=== PATIENT | male | born 1975 | race Caucasian/White ===

== ENCOUNTER → 2019-09-15 | Outpatient (CLI) | payer OTHER ==
[~2019-09-15] MED LIST: AMOXICILLIN500 MG PO; BENTYL20 MG PO; DARVOCET N 1001 TAB PO; DIFLUCAN100 MG PO; FLAGYL500 MG PO; KEFLEX500 MG PO; LOTRISONE 0.05%1 CRE TP; PEPCID20 MG PO; VICODIN 5/500 505 MG PO
== END | disposition home or self-care (01) ==
LOC: US 07-26 09:30
DX: K76.0 Fatty (change of) liver, not elsewhere classified (principal)

== ENCOUNTER → 2020-02-23 | Outpatient (CLI) | payer OTHER | END | disposition home or self-care (01) | LOC: MRI 02-09 09:00 | DX: M48.02 Spinal stenosis, cervical region (principal) ==

== ENCOUNTER → 2020-05-28 | Outpatient (CLI) | payer OTHER ==
[2020-05-28 09:44] LABS: URINE AMPHETAMINES < 1000 (1000ng/ml); URINE BARBITURATES < 200 (200ng/ml); URINE BENZODIAZEPINES < 200 (200ng/ml); URINE CANNABINOIDS (THC) < 50 (50ng/ml); URINE COCAINE < 300 (300ng/ml); URINE METHADONE < 300 (300ng/ml); URINE OPIATES < 300 (300ng/ml)
[2020-05-28 09:45] LABS: URINE PHENCYCLIDINE < 25 (25ng/ml)
== END | disposition home or self-care (01) ==
LOC: LAB 09:08
PROVIDERS: ATTEND Nurse Practitioner Primary Care
DX: Z79.899 Other long term (current) drug therapy (principal)

== ENCOUNTER 2020-06-15 01:58 | Inpatient (IN) | payer OTHER ==
[2020-06-15] VITALS (8 sets, daily range): BP systolic 128–163; BP diastolic 78–95
[~2020-06-15] VITALS: Ht 183 cm; Wt 125.0 kg
[2020-06-15 02:20] LABS: HEMATOCRIT 52.1 % (42.0-52.0); MEAN CELL VOLUME 90.1 fl (80.0-94.0); MEAN CORPUSCULAR HGB 29.2 pg (27.0-31.0); MEAN CORPUSCULAR HGB CONC 32.4 g/dl (33.0-37.0); MEAN PLATELET VOLUME 10.2 fl (9.6-12.3); PLATELET COUNT AUTOMATED 610 10*3/uL (130-400); RED BLOOD COUNT 5.78 10*6/uL (4.50-5.90); RED CELL DISTRI WIDTH 14.5 % (0-14.5); WHITE BLOOD COUNT 23.7 10*3/uL (4.8-10.8)
[2020-06-15 02:36] LABS: ALBUMIN 4.4 gm/dl (3.1-4.5); ALKALINE PHOSPHATASE 109 U/L (45-117); BUN 22 mg/dl (7-24); CHLORIDE 110 mmol/L (98-107); CREATININE 1.44 mg/dL (0.70-1.30); POTASSIUM 4.2 mmol/L (3.5-5.1); SGOT/AST 117 IU/L (3-35); SGPT/ALT 171 U/L (12-78); SODIUM 142 mmol/L (136-145); TOTAL PROTEIN 8.8 gm/dL (6.4-8.2)
[2020-06-15 02:44] LABS: BURR CELLS FEW; PLATELET SUFFICIENCY HIGH (NORMAL); TOTAL CELLS COUNTED 100 #CELLS
[2020-06-15 02:49] LABS: CPK 3474 U/L (39-308)
--- NOTE | 2020-06-15 04:07 | NUR ---
PT FAMILY AT BEDSIDE. PT DENIES ANY WOUNDS AT THIS TIME. SEVERAL SMALL SCRATCHES NOTED TO RIGHT UPPER ARM.
--- NOTE | 2020-06-15 05:02 | NUR ---
SANG COY JR, .PLEASE CALL SON IF PT IS DISCHARGED.
--- NOTE | 2020-06-15 06:28 | NUR ---
PT STILL UNABLE TO OBTAIN URINE SAMPLE. PT AGREES TO HIT CALL LIGHT WHEN URINE SAMPLE IS AVAILABLE. DENIES ALL OTHER NEEDS AT THIS TIME. BED RAILS X2. SAFETY PRECAUTIONS INTACT. WILL CONTINUE TO MONITOR.
--- NOTE | 2020-06-15 07:15 | NUR ---
BEDSIDE REPORT RECIEVED FROM PREVIOUS RN
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
--- NOTE | 2020-06-15 08:15 | NUR ---
PATIENT STATES HE IS STILL TRYING TO URINATE. HE HAS THE URINAL BETWEEN HIS LEGS. HE SAID HE WILL PUT THE CALL LIGHT ON WHEN HE IS FINISHED AND READY TO BE REPOSITIONED
--- NOTE | 2020-06-15 09:51 | NUR ---
LAB AT BEDSIDE
--- NOTE | 2020-06-15 09:51 | NUR ---
BREAKFAST TRAY PROVIDED
[2020-06-15 09:59] LABS: HEMATOCRIT 47.1 % (42.0-52.0); MEAN CELL VOLUME 91.5 fl (80.0-94.0); MEAN CORPUSCULAR HGB 29.9 pg (27.0-31.0); MEAN CORPUSCULAR HGB CONC 32.7 g/dl (33.0-37.0); MEAN PLATELET VOLUME 10.2 fl (9.6-12.3); PLATELET COUNT AUTOMATED 556 10*3/uL (130-400); RED BLOOD COUNT 5.15 10*6/uL (4.50-5.90); RED CELL DISTRI WIDTH 14.6 % (0-14.5)
[2020-06-15 10:16] LABS: ATYPICAL LYMPHS 2 % (0-0); TOTAL CELLS COUNTED 100 #CELLS
[2020-06-15 10:17] LABS: BURR CELLS FEW; PLATELET SUFFICIENCY HIGH (NORMAL); POLYCHROMASIA SLIGHT
[2020-06-15 10:26] LABS: ALBUMIN 3.7 gm/dl (3.1-4.5); BUN 21 mg/dl (7-24); CHLORIDE 112 mmol/L (98-107); CHOLESTEROL 153 mg/dL (<200); CREATININE 0.91 mg/dL (0.70-1.30); HDL CHOLESTEROL 28 mg/dl (40-60); LDL CHOLESTEROL 94 mg/dL (9-159); POTASSIUM 3.9 mmol/L (3.5-5.1); SGOT/AST 192 IU/L (3-35); SGPT/ALT 153 U/L (12-78); SODIUM 144 mmol/L (136-145); TOTAL PROTEIN 7.6 gm/dL (6.4-8.2); TRIGLYCERIDES 154 mg/dl (<150); VLDL CHOLESTEROL 31 mg/dL (6-40)
--- NOTE | 2020-06-15 10:26 | NUR ---
I SPOKE WITH JOCE CASON, PATIENT IS UNSURE OF HIS MEDICATION LIST, HE DOES USE BLOORS AT TIMES AND WE CALLED AND HAD THEM FAX US A LIST. WE ARE WAITING ON THAT TO MAKE DECISIONS. HE WAS JUST REPOSITIONED IN BED WELL, SKIN INTACT, HE IS AWARE A URINE SAMPLE IS STILL NEEDED. I ALSO FED HIM HIS BREAKFAST AND HE ATE 95% OF IT, WELL ONE JUICE AND HIS COFFEE. HE HAS NO NEEDS. I PROVIDED HIS CALL LIGHT FOR HIM.
[2020-06-15 10:36] LABS: ALKALINE PHOSPHATASE 94 U/L (45-117)
[2020-06-15 10:41] LABS: CPK 5537 U/L (39-308)
--- NOTE | 2020-06-15 10:59 | NUR ---
REFUSING A STRAIGHT CATH AT THIS TIME. HE IS STILL TRYING TO URINATE IN URINAL. YOAV LAGUNAS
[2020-06-15 11:41] LABS: BILIRUBIN 1+ (Negative); BLOOD 1+ (Negative); CLARITY Cloudy (Clear); COLOR Dark Yellow (Yellow); GLUCOSE Negative (Negative); KETONE Trace (Negative); LEUKO ESTERASE Trace (Negative); NITRITE Negative (Negative); PH 5.5 (4.5-8.0); SPECIFIC GRAVITY 1.025 (1.001-1.030)
[2020-06-15 11:49] LABS: BACTERIA 2+
[2020-06-15 11:50] LABS: MUCOUS 3+
[2020-06-15 11:51] LABS: URINE AMPHETAMINES > 1000 (1000ng/ml); URINE BARBITURATES < 200 (200ng/ml); URINE BENZODIAZEPINES > 200 (200ng/ml); URINE CANNABINOIDS (THC) < 50 (50ng/ml); URINE COCAINE < 300 (300ng/ml); URINE METHADONE < 300 (300ng/ml); URINE OPIATES < 300 (300ng/ml)
[2020-06-15 11:54] LABS: URINE PHENCYCLIDINE < 25 (25ng/ml)
--- NOTE | 2020-06-15 13:08 | NUR ---
A 44, admitted to , under the services of SOCO Ernandez DO with a diagnosis of RHABDOMYOLYSIS. Chief complaint is SMOKED HIS MEDICAL MARIJUANA LAST NIGHT, FELL ASLEEP & LAID ON LEFT SIDE X 7 HRS. Patient arrived via bed from ER. Monitor applied. Initial assessment completed. Vital signs taken and recorded. SOCO ERNANDEZ DO notified of admission to the unit. Orders received. See assessment for past medical history, medications and allergies. Patient and/or family oriented to unit. [facility] visitation policy reviewed. Clothing/patient valuable form completed. KOBI SNOW
[2020-06-15] MEDS ORDERED: MULTIPLE VITAM1 EAC2 PO (13:30)
[2020-06-15] MEDS ORDERED: XARE20MG PO (13:31)
[2020-06-15] MEDS ORDERED: VITAMIN D350 MCG PO (13:31)
[2020-06-15] MEDS ORDERED: DILTIAZEM HCL120 M1 PO (13:31)
[2020-06-15] MEDS ORDERED: VITAMIN E1000 UNI1 PO (13:32)
[2020-06-15] MEDS ORDERED: GABAPENTIN800 MG PO (13:32)
[2020-06-15] MEDS ORDERED: SUNMARK OMEPRAZ20 M1 PO (13:33)
[2020-06-15] MEDS ORDERED: ALL DAY ALLERGY10 M2 PO (13:33)
[2020-06-15] MEDS ORDERED: ATORVASTATIN CA20 M1 PO (13:33)
[2020-06-15] MEDS ORDERED: FISH OIL CONC1000 M1 PO (13:34)
[2020-06-15] MEDS ORDERED: QUETIAPINE FUM100 M1 PO (13:34)
[2020-06-15] MEDS ORDERED: NATURE'S BLEND F1 MG PO (13:35)
[2020-06-15] MEDS ORDERED: 'XANAX1 MG PO (13:35)
[2020-06-15] MEDS ORDERED: TRAZODONE100 MG PO (13:35)
[2020-06-15] MEDS ORDERED: Nystatin Cream15 GM T (13:36)
[2020-06-15] MEDS ORDERED: REMERON15 M2 PO (13:36)
--- NOTE | 2020-06-15 13:50 | NUR ---
Attempted to hang iv fluids noted noted at iv site to left hand is occluded and visibly bent. Pt states he moved and laid on his hand.
--- NOTE | 2020-06-15 16:30 | NUR ---
Pt accidently pulled out iv. Currently assisted to bedpan for bm. Will restart.
--- NOTE | 2020-06-15 22:02 | NUR ---
PRN TYLENOL GIVEN FOR PT COMPLAINTS OF NECK PAIN RATING IT 6/10. CALL LIGHT WITHIN REACH, WILL MONITOR
--- NOTE | 2020-06-15 22:07 | NUR ---
PRN XANAX GIVEN FOR PT COMPLAINTS OF ANXIETY AND RESTLESSNESS. CALL LIGHT WITHIN REACH, WILL MONITOR
--- NOTE | 2020-06-15 23:00 | NUR ---
PRN MEDICATION SOMEWHAT EFFECTIVE PER PT
[2020-06-16] VITALS: BP 151/88
--- NOTE | 2020-06-16 01:04 | NUR ---
PATIENT SLEEPING, NO DISTRESS NOTED. SNORING RESPIRATIONS. NO DISTRESS NOTED. CALL LIGHT WITHIN REACH, WILL MONITOR
--- NOTE | 2020-06-16 03:41 | NUR ---
PATIENT CONTINUES TO SLEEP. SNORING RESPIRATIONS. NO DISTRESS NOTED. CALL LIGHT WITHIN REACH, WILL MONITOR
--- NOTE | 2020-06-16 06:38 | NUR ---
SPOKE WITH DR. MCGRATH ABOUT PATIENTS TRAZADONE AND REMERON AND THAT PATIENT STATED HE CANNOT TAKE THE MEDICATION TOGETHER OR HE HALLUCINATES. UNSURE IF PATIENT TAKES MEDICATIONS SEPARATE OR DOESN'T TAKE TRAZADONE AT ALL PATIENT WAS ADAMENT ABOUT TAKING THE REMERON. THIS NURSE INQUIRED ABOUT D/C THE TRAZADONE OR MAKING IT PRN. HE STATED TO PUT THE MEDICATION ON HOLD AND THAT HE WILL PASS IT ON TO THE DAY TEAM AND LET THEM DECIDE FROM THERE
--- NOTE | 2020-06-16 07:00 | NUR ---
ARRIVED ON SHIFT, REPORT RECEIVED FROM OFFGOING NURSE, ASSUMED CARE OF PATIENT.
[2020-06-16 07:02] LABS: ALBUMIN 3.1 gm/dl (3.1-4.5); ALKALINE PHOSPHATASE 86 U/L (45-117); BUN 16 mg/dl (7-24); CHLORIDE 114 mmol/L (98-107); CREATININE 0.54 mg/dL (0.70-1.30); POTASSIUM 3.7 mmol/L (3.5-5.1); SGOT/AST 171 IU/L (3-35); SGPT/ALT 131 U/L (12-78); SODIUM 145 mmol/L (136-145); TOTAL PROTEIN 6.7 gm/dL (6.4-8.2)
[2020-06-16 07:26] LABS: CPK 2894 U/L (39-308)
--- NOTE | 2020-06-16 07:30 | NUR ---
INTRODUCED SELF TO PATIENT, BED IN LOW POSITION WITH WHEEL LOCKS ENGAGED, SIDE RAILS UP X 2 FOR TURNING AND REPOSITIONING, CALL LIGHT WITHIN REACH, NO NEEDS VOICED AT THIS TIME. WHITE BOARD UPDATED.
[2020-06-16 07:48] LABS: HEMATOCRIT 46.9 % (42.0-52.0); MEAN CELL VOLUME 92.7 fl (80.0-94.0); MEAN CORPUSCULAR HGB 29.6 pg (27.0-31.0); MEAN PLATELET VOLUME 10.3 fl (9.6-12.3); PLATELET COUNT AUTOMATED 533 10*3/uL (130-400); RED BLOOD COUNT 5.06 10*6/uL (4.50-5.90); RED CELL DISTRI WIDTH 14.6 % (0-14.5); WHITE BLOOD COUNT 19.4 10*3/uL (4.8-10.8)
--- NOTE | 2020-06-16 07:56 | NUR ---
Shift chart check completed.
[2020-06-16 08:00] VITALS: BP 124/75
[2020-06-16 08:12] LABS: BASOPHILS 1 % (0-1); TOTAL CELLS COUNTED 100 #CELLS
[2020-06-16 08:13] LABS: BURR CELLS FEW; PLATELET SUFFICIENCY HIGH (NORMAL); POLYCHROMASIA SLIGHT
--- NOTE | 2020-06-16 10:18 | NUR ---
PATIENT C/O FEELING ANXIOUS, MEDICATED WITH XANAX ORDERED PRN
--- NOTE | 2020-06-16 11:16 | NUR ---
PATIENT REPORTS LESS ANXIOUS, XANAX EFFECTIVE.
[2020-06-16 12:00] VITALS: BP 120/64
--- NOTE | 2020-06-16 12:07 | NUR ---
PATIENT REPORTS HAVING PAIN IN BOTH FEET, AND NECK RATES PAIN 7/10 MEDICATED WITH NORCO ORDERED PRN.
--- NOTE | 2020-06-16 13:08 | NUR ---
NORCO EFFECTIVE EVIDENCED BY PATIENT RESTING QUIETLY WITH EYES CLOSED.
[2020-06-16 16:00] VITALS: BP 134/71
--- NOTE | 2020-06-16 17:18 | NUR ---
C/O OF NECK PAIN 6, SHARP, BURING, ACHING, MEDICATED WITH NORCO ORDERED PRN FOR PAIN, WHITE BOARD UPDATED.
--- NOTE | 2020-06-16 19:40 | NUR ---
PT ASLEEP IN BED. NO S/S OF DISTRESS NOTED. WILL MONITOR. CALL LIGHT IN REACH.
[2020-06-16 20:00] VITALS: BP 148/82
--- NOTE | 2020-06-16 22:38 | NUR ---
MADE AWARE OF PT STARTING TO SOUND MOIST. PB RALES NOTED BL AND UPPER AIRWAY RHONCHI WELL. PT STATES HE IS COUGHING, BUT NOTHING IS COMING UP. STATES THIS IS NEW. DISCUSSED CURRENT RATE OF FLUIDS AT 125 ML/HR. ALSO DISCUSSED WBC 19.4 AND CK 2894. INSTRUCTED TO CONTINUE FLUIDS, BUT DECREASE RATE TO 80 ML/HR.
[2020-06-17] VITALS: BP 128/58
--- NOTE | 2020-06-17 07:00 | NUR ---
ARRIVED ON SHIFT, REPORT RECEIVED FROM OFFGOING, ASSUMED CARE OIF PATIENT.
[2020-06-17 07:01] LABS: MEAN CORPUSCULAR HGB 29.7 pg (27.0-31.0); MEAN CORPUSCULAR HGB CONC 31.6 g/dl (33.0-37.0); PLATELET COUNT AUTOMATED 497 10*3/uL (130-400); RED BLOOD COUNT 4.68 10*6/uL (4.50-5.90); RED CELL DISTRI WIDTH 14.6 % (0-14.5); WHITE BLOOD COUNT 18.9 10*3/uL (4.8-10.8)
--- NOTE | 2020-06-17 07:17 | NUR ---
Shift chart check completed.
[2020-06-17 07:19] LABS: ALBUMIN 2.9 gm/dl (3.1-4.5); ALKALINE PHOSPHATASE 83 U/L (45-117); BUN 7 mg/dl (7-24); CHLORIDE 114 mmol/L (98-107); CREATININE 0.53 mg/dL (0.70-1.30); SGOT/AST 99 IU/L (3-35); SGPT/ALT 114 U/L (12-78); SODIUM 143 mmol/L (136-145); TOTAL PROTEIN 6.3 gm/dL (6.4-8.2)
[2020-06-17 07:32] LABS: CPK 1198 U/L (39-308)
[2020-06-17 07:35] LABS: BASOPHILS 1 % (0-1); BURR CELLS FEW; PLATELET SUFFICIENCY HIGH (NORMAL); SCHISTOCYTES FEW; TOTAL CELLS COUNTED 100 #CELLS
--- NOTE | 2020-06-17 07:35 | NUR ---
INTRODUCED SELF TO PATIENT, BED IN LOW POSITION, WHEEL LOCKS ENGAGED, SIDE RAILS UP X 2 FOR TURNING AND REPOSITIONING, CALL LIGHT WITHIN REACH, NO NEEDS VOICED AT THIS TIME, WHITE BOARD UPDATED.
[2020-06-17 08:00] VITALS: BP 130/73
[2020-06-17] MEDS ORDERED: HYDROCODONE-AC1 EAC1 PO (08:09)
--- NOTE | 2020-06-17 08:25 | NUR ---
Occupational Therapy evaluation completed on 4 with full eval to follow. Precautions include impulsivity , fall risk d/t unfamiliar environment and impulsiveness,moderate complexity level-[id number]. Patient needed +2 transfer assist. REcommend OT per POC and home health SN,OT,PT and 24hr supervision and assist until patient can perform functional transfers at Mi level. Patient says his son and daughter will assist in the home. Thank you for this referral. Amanda Jones OTR/L
--- NOTE | 2020-06-17 08:35 | NUR ---
PHYSICAL THERAPY Physical Therapy evaluation completed on 4 with full eval to follow. Recommend PT per POC and home health SN,OT,PT and 24hr supervision and assist until patient can perform functional transfers at prior level of function. Patient says his son and daughter will assist in the home. Thank you for this Dana Armenta PT
--- NOTE | 2020-06-17 09:00 | NUR ---
Basting Marker in to talk to patient. Patient states lives at home with alone. There are no steps in the home. Physician: axel jarvis [facility]acy: [facility] Home health services: no home health Patient's level of ADLs: MODERATE ASSIST Patient has working utilities: all working DME: wheelchair Follow-up physician's appointment after d/c: will be made by hospitalist nurse director upon discharge Does patient want to access PORTAL?: no Discharge plan discussed with patient, he states he lives at home, he uses a wheelchair for ambulation and is able to stand and pivot into another chair or bed, he states he has care giverns 5 days a week and family visits. discussed with him a discharge plan and he stated he would be returning home. discussed with him [facility] and educated him on the services they provide, he was receptive to this, given choice of companies he chose [facility], will send referral for when patient is discharged home. COREY PEREZ
[2020-06-17 12:00] VITALS: BP 122/73
--- NOTE | 2020-06-17 12:43 | NUR ---
case management faxed home health order and face to face to Manasa at [facility]. educated her that patient is discharged to home today
--- NOTE | 2020-06-17 13:30 | NUR ---
Discharge instructions reviewed with patient/family. Patient receptive and verbalizes understanding. Follow-up care arranged. Written instructions given to patient/family, IV REMOVED, PATIENT WAS NOT MONITORED TAKEN OUT VIA W/C BY HOSPITAL PA, ADVISED A STOP IS NEEDED IN PHARMACY TO F[employer] SUPERVISOR HIS NORCO PERSCRIPTION. MOODY DOUGHERTY
== END 2020-06-17 13:30 | disposition home health service (06) | DRG 557 ==
LOC: ED 01:58 → EDHOLD 05:48 → 4E 05:48
PROVIDERS: Internal Medicine; Registered Nurse; ADMIT Student in an Organized Health Care Education/Training Program; ATTEND Student in an Organized Health Care Education/Training Program
DX: M62.82 Rhabdomyolysis (principal); N17.0 Acute kidney failure with tubular necrosis; R65.10 Systemic inflammatory response syndrome (SIRS) of non-infectious origin without acute organ dysfunction; I69.354 Hemiplegia and hemiparesis following cerebral infarction affecting left non-dominant side; D47.3 Essential (hemorrhagic) thrombocythemia; E87.8 Other disorders of electrolyte and fluid balance, not elsewhere classified; E83.41 Hypermagnesemia; R74.8 Abnormal levels of other serum enzymes; R73.9 Hyperglycemia, unspecified; G62.9 Polyneuropathy, unspecified; I48.0 Paroxysmal atrial fibrillation; M54.2 Cervicalgia; B19.20 Unspecified viral hepatitis C without hepatic coma; G89.29 Other chronic pain; I10 Essential (primary) hypertension; F41.9 Anxiety disorder, unspecified; E78.1 Pure hyperglyceridemia; Z79.899 Other long term (current) drug therapy; Z90.81 Acquired absence of spleen; Z87.891 Personal history of nicotine dependence; Z82.49 Family history of ischemic heart disease and other diseases of the circulatory system

== ENCOUNTER → 2021-02-25 | Outpatient (CLI) | payer OTHER ==
[~2021-02-25] MED LIST changes: +'XANAX1 MG PO; +ALL DAY ALLERGY10 M2 PO; +ATORVASTATIN CA20 M1 PO; +DILTIAZEM HCL120 M1 PO; +FISH OIL CONC1000 M1 PO; +GABAPENTIN800 MG PO; +HYDROCODONE-AC1 EAC1 PO; +MULTIPLE VITAM1 EAC2 PO; +NATURE'S BLEND F1 MG PO; +Nystatin Cream15 GM T; +QUETIAPINE FUM100 M1 PO; +REMERON15 M2 PO; +SUNMARK OMEPRAZ20 M1 PO; +TRAZODONE100 MG PO; +VITAMIN D350 MCG PO; +VITAMIN E1000 UNI1 PO; +XARE20MG PO
[2021-02-25 09:19] LABS: ALBUMIN 3.5 gm/dl (3.1-4.5); BILIRUBIN, DIRECT 0.2 mg/dL (0.0-0.2); TOTAL PROTEIN 7.7 gm/dL (6.4-8.2)
[2021-02-26 22:06] LABS: HCV LOG10 6.838 (.); HEPATITIS C QNT 6880000 IU/mL (.)
== END | disposition home or self-care (01) ==
LOC: LAB 11-27 01:24 → US 11-27 11:00 → LAB 11-27 11:00
PROVIDERS: ATTEND Internal Medicine Gastroenterology
DX: K76.0 Fatty (change of) liver, not elsewhere classified (principal); N28.1 Cyst of kidney, acquired; R76.8 Other specified abnormal immunological findings in serum

== ENCOUNTER → 2021-05-20 | Outpatient (CLI) | payer OTHER ==
[2021-05-20 09:50] LABS: HEMATOCRIT 44.7 % (42.0-52.0); MEAN CELL VOLUME 90.5 fl (80.0-94.0); MEAN CORPUSCULAR HGB 29.1 pg (27.0-31.0); MEAN CORPUSCULAR HGB CONC 32.2 g/dl (33.0-37.0); MEAN PLATELET VOLUME 10.1 fl (9.6-12.3); RED BLOOD COUNT 4.94 10*6/uL (4.50-5.90); RED CELL DISTRI WIDTH 14.7 % (0-14.5); WHITE BLOOD COUNT 14.7 10*3/uL (4.8-10.8)
[2021-05-20 10:31] LABS: VITAMIN D, 25-HYDROXY 46.6 ng/mL (30-100)
[2021-05-20 10:34] LABS: ALBUMIN 3.6 gm/dl (3.1-4.5); ALKALINE PHOSPHATASE 97 U/L (45-117); BUN 10 mg/dl (7-24); CHLORIDE 108 mmol/L (98-107); CREATININE 0.54 mg/dL (0.70-1.30); POTASSIUM 3.9 mmol/L (3.5-5.1); SGOT/AST 63 IU/L (3-35); SGPT/ALT 132 U/L (12-78); SODIUM 141 mmol/L (136-145); TOTAL PROTEIN 7.9 gm/dL (6.4-8.2)
== END | disposition home or self-care (01) ==
LOC: LAB 09:10
PROVIDERS: ATTEND Family Medicine
DX: E55.9 Vitamin D deficiency, unspecified (principal); B18.2 Chronic viral hepatitis C; R53.82 Chronic fatigue, unspecified

== ENCOUNTER → 2021-11-28 | Outpatient (CLI) | payer OTHER ==
[2021-11-28 11:29] LABS: HEMATOCRIT 43.9 % (42.0-52.0); MEAN CELL VOLUME 88.7 fl (80.0-94.0); MEAN CORPUSCULAR HGB 29.5 pg (27.0-31.0); MEAN CORPUSCULAR HGB CONC 33.3 g/dl (33.0-37.0); MEAN PLATELET VOLUME 10.5 fl (9.6-12.3); PLATELET COUNT AUTOMATED 516 10*3/uL (130-400); RED BLOOD COUNT 4.95 10*6/uL (4.50-5.90); RED CELL DISTRI WIDTH 14.4 % (0-14.5); WHITE BLOOD COUNT 11.4 10*3/uL (4.8-10.8)
[2021-11-28 11:31] LABS: MANUAL DIFF REFLEX YES
[2021-11-28 11:39] LABS: INTERNATIONAL NORM RATIO 1.2 (2.0-3.5)
[2021-11-28 11:46] LABS: ALKALINE PHOSPHATASE 74 U/L (45-117); BUN 12 mg/dl (7-24); CHLORIDE 107 mmol/L (98-107); CHOLESTEROL 218 mg/dL (<200); CPK 78 U/L (39-308); CREATININE 0.63 mg/dL (0.70-1.30); LDL CHOLESTEROL 162 mg/dL (9-159); POTASSIUM 4.2 mmol/L (3.5-5.1); SGOT/AST 89 IU/L (3-35); SGPT/ALT 172 U/L (12-78); SODIUM 137 mmol/L (136-145); TOTAL PROTEIN 8.7 gm/dL (6.4-8.2); TRIGLYCERIDES 144 mg/dl (<150)
[2021-11-28 11:53] LABS: ATYPICAL LYMPHS 7 % (0-0); BASOPHILS 4 % (0-1); TOTAL CELLS COUNTED 100 #CELLS
[2021-11-28 11:54] LABS: POLYCHROMASIA SLIGHT
[2021-11-28 11:55] LABS: BURR CELLS FEW; TARGET CELLS FEW
[2021-11-28 11:56] LABS: HOWELL-JOLLY BODIES FEW; PLATELET SUFFICIENCY HIGH (NORMAL)
[2021-11-29 20:04] LABS: HCV LOG10 7.428 (.); HEPATITIS C QNT See Final Results IU/mL (.)
== END | disposition home or self-care (01) ==
LOC: LAB 11-17 00:14
PROVIDERS: ATTEND Family Medicine
DX: B18.2 Chronic viral hepatitis C (principal); E78.00 Pure hypercholesterolemia, unspecified; E55.9 Vitamin D deficiency, unspecified; K21.9 Gastro-esophageal reflux disease without esophagitis; I63.9 Cerebral infarction, unspecified

== ENCOUNTER → 2022-06-15 | Outpatient (CLI) | payer OTHER ==
[2022-06-16 20:07] LABS: HEPATITIS C QUANTITATION HCV Not Detected IU/mL (.)
== END | disposition home or self-care (01) ==
LOC: LAB 06:57
PROVIDERS: ATTEND Internal Medicine Gastroenterology
DX: B19.20 Unspecified viral hepatitis C without hepatic coma (principal)

== ENCOUNTER → 2022-10-12 | Outpatient (CLI) | payer OTHER ==
[2022-10-12 10:03] LABS: HEMATOCRIT 42.9 % (42.0-52.0); MEAN CELL VOLUME 90.3 fl (80.0-94.0); MEAN CORPUSCULAR HGB 29.5 pg (27.0-31.0); MEAN CORPUSCULAR HGB CONC 32.6 g/dl (33.0-37.0); MEAN PLATELET VOLUME 9.8 fl (9.6-12.3); RED BLOOD COUNT 4.75 10*6/uL (4.50-5.90); RED CELL DISTRI WIDTH 14.7 % (0-14.5); WHITE BLOOD COUNT 22.6 10*3/uL (4.8-10.8)
[2022-10-12 10:28] LABS: ALKALINE PHOSPHATASE 75 U/L (46-116); BUN 14 mg/dl (9-23); CHLORIDE 103 mmol/L (98-107); CHOLESTEROL 238 mg/dL (<200); LDL CHOLESTEROL 172 mg/dL (9-159); POTASSIUM 4.3 mmol/L (3.4-5.1); SGPT/ALT 21 U/L (10-49); TRIGLYCERIDES 140 mg/dl (<150)
[2022-10-12 10:57] LABS: VITAMIN D, 25-HYDROXY 17.2 ng/mL (30-100)
== END | disposition home or self-care (01) ==
LOC: LAB 09:38
PROVIDERS: Family Medicine; ATTEND Orthopaedic Surgery
DX: Z01.818 Encounter for other preprocedural examination (principal); G56.01 Carpal tunnel syndrome, right upper limb; G56.21 Lesion of ulnar nerve, right upper limb; I10 Essential (primary) hypertension; E78.00 Pure hypercholesterolemia, unspecified; E55.9 Vitamin D deficiency, unspecified; Z79.899 Other long term (current) drug therapy; Z12.5 Encounter for screening for malignant neoplasm of prostate

== ENCOUNTER → 2022-12-08 | Outpatient (CLI) | payer OTHER ==
[2022-12-08 12:09] LABS: HEMATOCRIT 43.4 % (42.0-52.0); MEAN CORPUSCULAR HGB 29.3 pg (27.0-31.0); MEAN CORPUSCULAR HGB CONC 32.5 g/dl (33.0-37.0); MEAN PLATELET VOLUME 9.8 fl (9.6-12.3); RED BLOOD COUNT 4.82 10*6/uL (4.50-5.90); RED CELL DISTRI WIDTH 14.3 % (0-14.5); WHITE BLOOD COUNT 11.1 10*3/uL (4.8-10.8)
[2022-12-08 13:08] LABS: ALKALINE PHOSPHATASE 74 U/L (46-116); BUN 9 mg/dl (9-23); CHLORIDE 104 mmol/L (98-107); POTASSIUM 4.1 mmol/L (3.4-5.1); SGPT/ALT 15 U/L (10-49); TOTAL PROTEIN 7.5 gm/dL (6.0-8.0)
== END | disposition home or self-care (01) ==
LOC: LAB 11:45
PROVIDERS: ATTEND Family Medicine
DX: G62.9 Polyneuropathy, unspecified (principal); D72.829 Elevated white blood cell count, unspecified; G47.00 Insomnia, unspecified